=== PATIENT | male | born 1965 | race Caucasian/White ===

== ENCOUNTER → 2016-12-30 | Outpatient (CLI) | payer BC ==
[~2016-12-30] MED LIST: LISINOPRIL 10MG10 MG PO; LORTAB 5/500 501 TAB PO; SIMVASTATIN10 MG PO; ZYRTEC 10MG TAB10 MG PO
[2016-12-30 11:09] LABS: BUN 18 mg/dL (7-18); PROSTATE-SPECIFIC AG SCREEEN 0.7 ng/mL (0.0-4.0)
[2016-12-30 11:12] LABS: GFR (ESTIMATED) 89 ML/MIN (>60)
== END ==
LOC: LAB 08:18
PROVIDERS: Family Medicine
DX: I10 Essential (primary) hypertension (principal); E78.5 Hyperlipidemia, unspecified; Z12.5 Encounter for screening for malignant neoplasm of prostate
CPT/HCPCS: G0103